=== PATIENT | male | born 1950 | race Caucasian/White ===

== ENCOUNTER 2020-02-17 05:29 | Inpatient (IN) | payer OTHER, MEDICARE ==
[2020-02-09 16:44] LABS: ALBUMIN 3.1 G/DL (3.4-5.0); ALBUMIN/GLOBULIN RATIO 0.6 (1.1-1.5); ALKALINE PHOSPHATASE 115 IU/L (46-116); BLOOD UREA NITROGEN 18 MG/DL (7-18); BUN/CREATININE RATIO 13.7 (5.4-32.0); CALCIUM 9.2 MG/DL (8.5-10.1); CHLORIDE 104 MMOL/L (99-107); CREATININE 1.31 MG/DL (0.60-1.10); PRE OP ALT 13 U/L (30-65); PRE OP ANION GAP 10 (8-16); PRE OP AST 14 U/L (10-37); PRE OP BILIRUB, TOTAL 0.2 MG/DL (0.0-1.0); PRE OP GLUCOSE 115 MG/DL (70-104); PRE OP POTASSIUM 4.8 MMOL/L (3.4-5.1); PRE OP SODIUM 135 MMOL/L (135-145); TOTAL CARBON DIOXIDE 21.4 MMOL/L (24-32); TOTAL PROTEIN 8.1 G/DL (6.4-8.2); eGFR 54 ML/MIN
[~2020-02-17] VITALS: Ht 182.9 cm; Wt 70.8 kg
[2020-02-17] VITALS (8 sets, daily range): BP systolic 112–153; BP diastolic 61–84
[~2020-02-17 05:29] MED LIST: ASPI-611 PO; CLOP75TA33 PO; CYCL-394 PO; GABA600T13 PO; LOSA50TA3 PO; METF-436 PO; METH-603 PO; METH5TAB2 PO; NORT25CA5 PO; PER5325T PO; ringers solution, lacted 1,000 ML IV SCH
[2020-02-17] MEDS ORDERED: famotidine 20mg tablet PO ONE (05:30)
[2020-02-17] MEDS ORDERED: ceFAZolin 1GM/D5W- ADD-VANTAGE 50 ML IV ONE (05:30)
[2020-02-17] MEDS ORDERED: vancomycin 1,500 MG in NS 300ml IV soln IV ONE (05:30)
[2020-02-17] MEDS ORDERED: METH5TAB PO (05:46)
[2020-02-17] MEDS ORDERED: PANT-47 PO (05:51)
[2020-02-17] MEDS ORDERED: ASPI-1264 PO (05:51)
[2020-02-17] MEDS ORDERED: ATOR80TA PO (05:51)
[2020-02-17 06:45] LABS: BASOPHILS # (AUTO) 0.1 X10'3 (0-0.2); BASOPHILS % (AUTO) 1.2 % (0-1); EOSINOPHILS # (AUTO) 0.2 X10'3 (0-0.9); EOSINOPHILS % (AUTO) 2.4 % (0-6); HEMATOCRIT 33.2 % (42.0-52.0); HEMOGLOBIN 10.8 g/dl (14.0-17.9); LYMPHOCYTES # (AUTO) 2.1 X10'3 (1.1-4.8); LYMPHOCYTES % (AUTO) 21.4 % (21-51); MEAN CORPUSCULAR HEMOGLOBIN 26.1 PG (27.0-31.0); MEAN CORPUSCULAR HGB CONC 32.6 g/dL (33.0-36.5); MEAN PLATELET VOLUME 7.6 FL (7.4-10.4); MONOCYTES # (AUTO) 0.8 X10'3 (0-0.9); NEUTROPHILS # (AUTO) 6.4 X10'3 (1.8-7.7); PLATELET COUNT 347 X10'3 (140-440); RED BLOOD COUNT 4.15 X10'6 (4.70-6.10); RED CELL DISTRIBUTION WIDTH 17.3 % (11.5-14.5); WHITE BLOOD COUNT 9.6 X10'3 (4.5-11.0)
[2020-02-17 06:47] LABS: PARTIAL THROMBOPLASTIN TIME 28 SECONDS (22-32)
[2020-02-17] MEDS ORDERED: ringers solution, lacted 1,000 ML IV SCH (07:07)
[2020-02-17] MEDS ORDERED: morphine 4 MG/ML inj SYRINge IV PRN (07:10)
[2020-02-17] MEDS ORDERED: labetalol 20mg/4ml (5mg/ml) syringe IV PRN (07:10)
[2020-02-17] MEDS ORDERED: ondansetron/PF 4mg/2ml inj IV PRN (07:10)
[2020-02-17] MEDS ORDERED: morphine 2 MG/ML inj. syringe IV PRN (07:10)
[2020-02-17] MEDS ORDERED: hydrALAZINE 20mg/ml inj. IV PRN (07:10)
[2020-02-17] MEDS ORDERED: fentaNYL/PF 50MCG/1 ML 2ML syringe IV PRN ×2 (07:10)
[2020-02-17] MEDS ORDERED: LIDOcaine 2% (20mg/ml) 5ml vial ONE (07:12)
[2020-02-17] MEDS ORDERED: ondansetron/PF 4mg/2ml inj ONE (07:12)
[2020-02-17] MEDS ORDERED: fentaNYL/PF 50MCG/1 ML 2ML syringe ONE (07:12)
[2020-02-17] MEDS ORDERED: propofol inj 20 ML IV ONE (07:12)
[2020-02-17] MEDS ORDERED: midazolam 2 mg/2 ml injection ONE (07:12)
[2020-02-17] MEDS ORDERED: sevoflurane 250ml liquid IH ONE (07:14)
[2020-02-17] MEDS ORDERED: ePHEDrine 50MG/ML INJ. ONE (07:40)
[2020-02-17] MEDS ORDERED: BUPIVAcaine/PF 2.5 mg/ml (0.25%) 30ml vial ONE (07:55)
--- NOTE | 2020-02-17 08:10 | NUR ---
Received from OR via BED, accompanied by Anesthesiologist DR PETTIT-- and report given by Anesthesiolgist. PATIENT SEDATED, DENIES PAIN, V/S WNL, NEUROVASCULAR CHECKS INTACT, 20G PIV RUE, LEFT STUMP DRESSING CDI
[2020-02-17] MEDS ORDERED: HYDROcodone/acetaminophen 10/325mg tab PO PRN (08:15)
--- NOTE | 2020-02-17 09:10 | NUR ---
PATIENT A&OX4, DENIES PAIN, V/S WNL, NEUROVASCULAR CHECKS INTACT, 20G PIV RUE D/C, LEFT STUMP DRESSING CDI . I HAVE REVIEWED D/C INSTRUCTIONS WITH PATIENT AND HE HAS VERBALIZED UNDERSTANDING. PATIENT D/C HOME WITH ALL BELONGINGS AND HIS FAMILY GAVE TRANSPORT HOME.
== END 2020-02-17 09:10 | disposition home or self-care (01) | DRG 572 ==
LOC: PAS IN 05:29 → UNDOADMIN 05:29 → EDSTATUS 07:30 → PAS IN 08:13 → UNDODISIN 09:10
PROVIDERS: ADMIT Orthopaedic Surgery; ATTEND Orthopaedic Surgery
PROC: 0JBP0ZZ Excision of Left Lower Leg Subcutaneous Tissue and Fascia, Open Approach (ICD-10-PCS; principal; 2020-02-17 07:14)
DX: L72.3 Sebaceous cyst (principal); Z89.512 Acquired absence of left leg below knee; Z72.0 Tobacco use
CPT/HCPCS: 36415; 80053; 82948; 85025; 85610; 85730; 87635; 93005; A4618; A6222; A6449; A7000; J0690; J2001; J2250; J2405; J2704; J3010; J3370; J3490; J7040; J7120

== ENCOUNTER 2020-03-23 10:10 | Emergency (ER) | payer OTHER, MEDICARE ==
[~2020-03-23] VITALS: Ht 152.4 cm; Wt 71.8 kg
[~2020-03-23 10:10] MED LIST changes: +ASPI-1264 PO; -ASPI-611 PO; +ATOR80TA PO; +METH5TAB PO; -METH5TAB2 PO; +PANT-47 PO; -ringers solution, lacted 1,000 ML IV SCH
[2020-03-23] MEDS ORDERED: cephalexin 250mg capsule PO ONE (11:00)
[2020-03-23] MEDS ORDERED: CEPH500C5 PO (11:05)
[2020-03-23 11:45] VITALS: BP 149/72
== END 2020-03-23 12:16 | disposition home or self-care (01) ==
LOC: ER 10:10
DX: T87.81 Dehiscence of amputation stump (principal); T81.49XA Infection following a procedure, other surgical site, initial encounter; Z79.82 Long term (current) use of aspirin; Z88.1 Allergy status to other antibiotic agents; Z79.899 Other long term (current) drug therapy; Y84.8 Other medical procedures as the cause of abnormal reaction of the patient, or of later complication, without mention of misadventure at the time of the procedure; Y92.89 Other specified places as the place of occurrence of the external cause
CPT/HCPCS: 12020; 87070; 87077; 87186; 99283; 99284